=== PATIENT | female | born 1970 | race Two or more races ===

== ENCOUNTER 2017-11-17 15:24 | Outpatient (CLI) | payer OTHER | END 2017-11-17 16:14 | disposition home or self-care (01) | LOC: RAD 15:24 | DX: J98.4 Other disorders of lung (principal) ==

== ENCOUNTER → 2018-07-31 | Outpatient (CLI) | payer OTHER | END | disposition home or self-care (01) | LOC: MAMO-SONO 14:01 | DX: N60.11 Diffuse cystic mastopathy of right breast (principal); N60.12 Diffuse cystic mastopathy of left breast; Z12.31 Encounter for screening mammogram for malignant neoplasm of breast ==

== ENCOUNTER 2020-07-13 13:59 | Outpatient (CLI) | payer OTHER | END 2020-07-13 14:04 | disposition home or self-care (01) | LOC: MAMO-SONO 13:59 | PROVIDERS: ATTEND Obstetrics & Gynecology | DX: Z12.31 Encounter for screening mammogram for malignant neoplasm of breast (principal); N60.11 Diffuse cystic mastopathy of right breast; N60.12 Diffuse cystic mastopathy of left breast ==

== ENCOUNTER 2020-07-13 15:34 | Outpatient (CLI) | payer OTHER | END 2020-07-13 15:40 | disposition home or self-care (01) | LOC: NUCLEAR 15:34 | PROVIDERS: ATTEND Obstetrics & Gynecology | DX: M81.0 Age-related osteoporosis without current pathological fracture (principal) ==

== ENCOUNTER 2021-07-01 19:33 | Emergency (ER) | payer OTHER ==
[~2021-07-01] VITALS: Ht 172.7 cm; Wt 136.1 kg
[2021-07-01] MEDS ORDERED: PROVIGIL200 MG PO (20:02)
[2021-07-01] MEDS ORDERED: ENDOMETRIN100 MG VAG (20:03)
== END 2021-07-01 23:55 | disposition home or self-care (01) ==
LOC: ER 19:33
DX: K42.9 Umbilical hernia without obstruction or gangrene (principal)

== ENCOUNTER 2021-07-29 10:34 | Outpatient (CLI) | payer OTHER ==
[~2021-07-29 10:34] MED LIST: ENDOMETRIN100 MG VAG; PROVIGIL200 MG PO
== END 2021-07-29 10:52 | disposition home or self-care (01) ==
LOC: TOM 10:34
DX: K46.9 Unspecified abdominal hernia without obstruction or gangrene (principal)

== ENCOUNTER 2021-07-29 11:44 | Outpatient (CLI) | payer OTHER | END 2021-07-29 12:05 | disposition home or self-care (01) | LOC: MAMO-SONO 11:44 | DX: N60.11 Diffuse cystic mastopathy of right breast (principal); N60.12 Diffuse cystic mastopathy of left breast ==

== ENCOUNTER 2023-09-29 12:16 | Outpatient (CLI) | payer OTHER | END 2023-09-29 12:36 | disposition home or self-care (01) | LOC: MAMO-SONO 12:16 | PROVIDERS: ATTEND Obstetrics & Gynecology | DX: N60.11 Diffuse cystic mastopathy of right breast (principal); N60.12 Diffuse cystic mastopathy of left breast ==

== ENCOUNTER 2023-11-15 07:36 | Outpatient (CLI) | payer OTHER | END 2023-11-15 07:38 | disposition home or self-care (01) | LOC: SONOGRAMA 07:36 | PROVIDERS: ATTEND Internal Medicine Endocrinology, Diabetes & Metabolism | DX: E04.1 Nontoxic single thyroid nodule (principal) ==